=== PATIENT | male | born 1975 | race American Indian/Alaskan Native ===

== ENCOUNTER 2017-06-26 16:30 | Emergency (ER) | payer OTHER ==
[2017-06-26 17:08] VITALS: BMI 35.9
--- NOTE | 2017-06-26 18:40 | C.PDOC ---
History Of Present Illness 41 y/o male with history of HTN and general herpes presents to ED today with complaints of bright blood in semen last night while having intercourse with female partner. Patient states partner was not on menstrual cycle and denies dysuria, back pain, fever, chills or any other complaints at this time. Time Seen by Provider: 06/26/17 18:22 Chief Complaint (Nursing): Male Genitourinary History Per: Patient History/Exam Limitations: no limitations Onset/Duration Of Symptoms: Days Current Symptoms Are (Timing): Still Present Past Medical History Reviewed: Historical Data, Nursing Documentation, Vital Signs Vital Signs: Last Vital Signs Temp 98.7 F 06/26/17 17:07 Pulse 65 06/26/17 17:07 Resp 20 06/26/17 17:07 BP 152/106 H 06/26/17 17:07 Pulse Ox 97 06/26/17 18:51 - Medical History PMH: HTN Surgical History: No Surg Hx Family History: States: No Known Family Hx - Social History Hx Alcohol Use: Yes Hx Substance Use: No - Immunization History Hx Tetanus Toxoid Vaccination: No Hx Influenza Vaccination: No Hx Pneumococcal Vaccination: No Review Of Systems Constitutional: Negative for: Fever, Chills Genitourinary: Positive for: Penile Discharge (Bright red blood), Penile Pain Skin: Negative for: Rash Physical Exam - Physical Exam Appears: Non-toxic, No Acute Distress Skin: Warm, Dry, No Rash Head: Atraumatic, Normacephalic Oral Mucosa: Moist Neck: Normal ROM, Supple Cardiovascular: Rhythm Regular Respiratory: Normal Breath Sounds, No Rales, No Rhonchi, No Wheezing Gastrointestinal/Abdominal: Soft, No Tenderness, No Guarding, No Rebound Back: No CVA Tenderness Male Genital: No Testicular Tenderness, No Testicular Swelling Neurological/Psych: Oriented x3 Gait: Steady ED Course And Treatment - Laboratory Results Result Diagrams: 06/26/17 19:02 06/26/17 19:02 Lab Interpretation: No Acute Changes O2 Sat by Pulse Oximetry: 97 (RA) Pulse Ox Interpretation: Normal - CT Scan/US testicular ultrasound Other Rad Studies (CT/US): Read By Radiologist CT/US Interpretation: Accession No. : [id number]. Patient Name / ID : GENE ARAGON / [id number]. Exam Date : 06/26/2017 19:12:40 ( Approved ). Study Comment : Sex / Age : M / 41Y. Creator : EULALIA GARCIA. Dictator : Digital Coordinator : Home Theater Installer : EULALIA GARCIA. Approver2 : Report Date : 06/26/2017 19:57:00. My Comment : . YES.[email or web address]. [address] [place] [address]. Tel. no. . . . Patient Name: MARGO MILLS . Pt. Address: [address] [place] [address]. Rec # : [id number]. [place] [address]: Wellington BUENROSTRO,Vielka Randall. Pt Order Location: [facility] : 1975 Male Age: 41 Order #: [id number]. Accession # : [id number]. Reason for exam: hematospermia. . . . . . Ultrasound. . . TESTICULAR Exam Date: 06/26/17. . This imaging exam was performed at [facility]. EXAM: US Scrotum. . EXAM DATE /TIME: Exam ordered 06/26/2017 6:40 PM. . CLINICAL HISTORY: 41 years old, male ; Signs and symptoms; Hematospermia. . TECHNIQUE: Real-time ultrasound of the scrotum with color Doppler and image. documentation. . COMPARISON: No relevant prior studies available. . FINDINGS: Right testicle: The right testicle measures 4.4 x 2.4 x 2.8 cm.. Blood flow. is demonstrated to the testicle on color Doppler and pulse Doppler examination. No torsion. Left testicle: The left testicle measures 4.5 x 2.2 x 3.2 cm.. Blood flow is. demonstrated to the left testicle on color Doppler and pulse Doppler. examination. No torsion. Epididymides: The right epididymal head appears normal measuring 1.1 cm. The left epididymal head measures 1. 6 cm in greatest diameter and appears. normal. Scrotum: Unremarkable. Free fluid: The echotexture of the testes is homogeneous. There is symmetric. blood flow to the testes. No free fluid. . IMPRESSION: No acute findings. . Dictated By : Eulalia Garcia MD. Dictated Date/Time: 06/26/171956. Signed By: Eulalia Garcia MD. Date Signed: 06/26/171956. Transcribed By: [facility]. Transcribe Date/Time: 06/26/171956. LUANA/KAYLYN Reevaluation Time: 20:26 Reassessment Condition: Improved Disposition Counseled Patient/Family Regarding: Studies Performed, Diagnosis, Need For Followup - Disposition Referrals: Cynthia Bass MD [Staff Provider] - Disposition: HOME/ ROUTINE Disposition Time: 20:30 Condition: STABLE Forms: [facility] (Sinhala), General Discharge Instructions - Clinical Impression Clinical Impression: Hematospermia - Scribe Statement The provider has reviewed the documentation as recorded by the Scribpieter Britt All medical record entries made by the Scribe were at my direction and personally dictated by me. I have reviewed the chart and agree that the record accurately reflects my personal performance of the history, physical exam, medical decision making, and the department course for this patient. I have also personally directed, reviewed, and agree with the discharge instructions and disposition.
[2017-06-26 19:09] LABS: BASO % 0.5 % (0.0-2.0); EOS # 0.1 K/uL (0.0-0.7); EOS % 2.3 % (0.0-4.0); HEMOGLOBIN 12.7 g/dL (12.0-18.0); LYMPH # 1.7 K/uL (1.0-4.3); LYMPH % 41.1 % (20.0-40.0); MEAN CORPUSCULAR HEMOGLOBIN 22.2 pg (27.0-31.0); MEAN CORPUSCULAR HGB CONC 31.7 g/dL (33.0-37.0); MEAN PLATELET VOLUME 8.8 fL (7.2-11.7); MONO # 0.6 K/uL (0.0-0.8); MONO % 15.3 % (0.0-10.0); NEUT # 1.7 K/uL (1.8-7.0); NEUT % 40.8 % (50.0-75.0); NRBC % 0.1 % (0.0-2.0); RBC 5.73 Mil/uL (4.40-5.90); RED CELL DISTRIBUTION WIDTH 17.1 % (11.5-14.5); WHITE BLOOD COUNT 4.2 K/uL (4.8-10.8)
[2017-06-26 19:14] LABS: URINE BILIRUBIN NEGATIVE (NEGATIVE); URINE BLOOD NEGATIVE (NEGATIVE); URINE CLARITY Clear (Clear); URINE COLOR Yellow (YELLOW); URINE GLUCOSE (UA) NORMAL (Normal); URINE LEUKOCYTE ESTERASE NEG Leu/uL (Negative); URINE NITRATE NEGATIVE (NEGATIVE); URINE PROTEIN 1+ mg/dL (NEGATIVE); URINE UROBILINOGEN NORMAL mg/dL (0.2-1.0)
[2017-06-26 19:22] LABS: ALB/GLOB RATIO 1.2 (1.0-2.1); ALBUMIN 4.1 g/dL (3.5-5.0); ALT/SGPT 38 U/L (21-72); AST/SGOT 34 U/L (17-59); BLOOD UREA NITROGEN 16 mg/dL (9-20); CALCIUM 8.3 mg/dl (8.6-10.4); GFR AFRICAN-AMERICAN > 60; GFR NON-AFRICAN AMERICAN > 60
--- NOTE | 2017-06-26 19:57 | US ---
EXAM: US Scrotum EXAM DATE/TIME: Exam ordered 06/26/2017 6:40 PM CLINICAL HISTORY: 41 years old, male; Signs and symptoms; Hematospermia TECHNIQUE: Real-time ultrasound of the scrotum with color Doppler and image documentation. COMPARISON: No relevant prior studies available. FINDINGS: Right testicle: The right testicle measures 4.4 x 2.4 x 2.8 cm.. Blood flow is demonstrated to the testicle on color Doppler and pulse Doppler examination. No torsion. Left testicle: The left testicle measures 4.5 x 2.2 x 3.2 cm.. Blood flow is demonstrated to the left testicle on color Doppler and pulse Doppler examination. No torsion. Epididymides: The right epididymal head appears normal measuring 1.1 cm. The left epididymal head measures 1. 6 cm in greatest diameter and appears normal. Scrotum: Unremarkable. Free fluid: The echotexture of the testes is homogeneous. There is symmetric blood flow to the testes. No free fluid. IMPRESSION: No acute findings.
[2017-06-26 20:53] VITALS: BP 153/98; PULSE 64; RESP 18; TEMP 98.2; O2SAT 99
== END 2017-06-26 20:50 | disposition home or self-care (01) ==
LOC: C.ER 16:30
DX: R36.1 Hematospermia (principal); I10 Essential (primary) hypertension